=== PATIENT | male | born 1970 | race African-American/Black ===

== ENCOUNTER 2024-05-04 10:16 | Emergency (ER) | payer MEDICAID ==
[2024-05-04 11:01] LABS: #Basophils Less than 0.03 10x3/uL (0.0-0.2); #Eosinophils 0.07 10x3/uL (0.0-0.5); #Monocytes 0.34 10x3/uL (0.0-1.1); #Neutrophils 1.53 10x3/uL (1.5-8.4); %Basophils 0.4 % (0.0-2.0); %Eosinophils 2.6 % (0.0-6.0); %Lymphocytes 28.8 % (18.0-47.0); %Monocytes 12.4 % (0.0-10.0); %Neutrophils 55.8 % (40.0-75.0); Hemoglobin 12.1 g/dL (13.5-17.5); Mean Corpuscular HGB CONC 32.7 g/dL (32.0-36.0); Mean Corpuscular Hemoglobin 29.4 pg (27.0-33.0); Mean Corpuscular Volume 89.8 fL (81.2-95.1); Mean Platelet Volume 10.8 fL (7.4-10.4); Platelet Count 141 10x3/uL (150-450); RBC Distribution Width 14.2 % (11.5-14.5); Red Blood Cell (RBC) Count 4.12 10x6/uL (4.32-5.72); White Blood Cell (WBC) Count 2.74 10x3/uL (3.5-10.5)
[2024-05-04 11:21] LABS: ALT (SGPT) 54 U/L (Less than 45); AST (SGOT) 41 U/L (11-34); Albumin 3.6 g/dL (3.1-4.5); Alkaline Phosphatase 104 U/L (40-110); Anion Gap 12 mmol/L (10-20); BUN (Urea Nitrogen) 18 mg/dL (8.4-25.7); Bilirubin, Total 0.2 mg/dL (0.3-1.2); Calc. Creatinine Clearance 0 mL/min (70-130); Calcium 8.1 mg/dL (7.8-10.44); Carbon Dioxide 25 mmol/L (22-29); Chloride 107 mmol/L (98-107); Estimated GFR 61; Globulin 3.1 g/dL (2.4-3.5); Glucose 103 mg/dL (70-105); Potassium 4.4 mmol/L (3.5-5.1); Protein, Total 6.7 g/dL (6.0-8.3); Sodium 140 mmol/L (136-145)
[2024-05-04 11:27] LABS: Troponin I 0.066 ng/mL (< 0.028)
[2024-05-04] MEDS ORDERED: Aspirin Chewable 81 MG TAB ONE (13:36)
[2024-05-04] MEDS ORDERED: Acetaminophen 500 MG TAB ONE (13:36)
[2024-05-04 13:54] LABS: Troponin I 0.067 ng/mL (< 0.028)
== END 2024-05-04 15:51 | disposition short-term general hospital (02) ==
LOC: CSHERS 10:16
DX: I21.4 Non-ST elevation (NSTEMI) myocardial infarction (principal); I10 Essential (primary) hypertension; I25.2 Old myocardial infarction; E78.00 Pure hypercholesterolemia, unspecified; Z86.73 Personal history of transient ischemic attack (TIA), and cerebral infarction without residual deficits; Z79.899 Other long term (current) drug therapy
CPT/HCPCS: 36415; 71045; 80053; 83880; 84484; 85025; 93005; 94760